=== PATIENT | male | born 1975 | race Caucasian/White ===

== ENCOUNTER → 2017-07-06 15:11 | Outpatient (CLI) | payer BC, SELFPAY ==
--- NOTE | 2017-07-06 15:20 | RAD_ITS ---
STUDY: X-RAY CHEST REASON FOR EXAM: Male, 41 years old. Shortness of breath TECHNIQUE: Frontal and lateral views of the chest COMPARISON: None. FINDINGS: The lungs are clear. There are no pleural effusions. There is no pneumothorax. The heart is normal in size. The visualized osseous structures are within normal limits. RAD/Chest PA and Lateral IMPRESSION: No acute thoracic pathology. Electronically Signed: Dany Salgado, at 16:07 EDT Tel , Service support ,
== END ==
PROVIDERS: Family Provider Internal Medicine; PCP Internal Medicine; Visit Provider Internal Medicine
DX: R06.02 Shortness of breath (principal)
CPT/HCPCS: 71046

== ENCOUNTER → 2018-12-24 | Outpatient (CLI) | payer SELFPAY ==
--- NOTE | 2018-12-24 14:57 | CT_ITS ---
STUDY: CARDIAC CALCIUM SCORING - CT CHEST REASON FOR EXAM: Male, 43 years old. Screening. RADIATION DOSAGE (If Supplied By Facility): CTDIvol = ( 12.19 ) mGy, DLP = ( 170.66 ) mGycm TECHNIQUE: Axial non-enhanced images were acquired through the heart for the sole purpose of measuring coronary artery calcium. Individualized dose optimization techniques were used for this CT. COMPARISON: None. FINDINGS: This portion of the report is being generated solely for the evaluation of noncoronary artery structures which have been assessed on plain another report. The visualized lungs are well expanded and free of mass or infiltrate. The heart is normal in size. Normal pericardium. Normal visualized mediastinum and evrnon. Normal visualized pulmonary arteries and thoracic aorta. Minimal degenerative changes of the thoracic spine. Normal visualized upper abdomen. CT/Limited Chest CT w/CCTA IMPRESSION: No visualized anatomic abnormality. Electronically Signed: Simon Richards DO at 20:50 EDT Tel [phone], Service support ,
[2018-12-24 15:18] VITALS: BP 133/80; PULSE 63; RESP 14; O2SAT 95; BMI 34.7
--- NOTE | 2018-12-27 14:18 | CA.SCORE ---
Calcium Scoring Date of Study:: 12/24/18 Coronary Calcium Scoring: High-resolution Computed Tomographic imaging of the chest was performed on [ ], with particular attention paid to the coronary arteries. Images from the examination were analyzed for the presence and extent of coronary artery calcification , using coronary calcium quantification software. The patient tolerated the procedure well and there were no complications. The results of the coronary calcification analysis are provided below. - Findings Left Main (LM): 3.58 Left Anterior Descending (LAD): 0 Left Circumflex (LCX): 0 Right Coronary Artery (RCA): 0 Total Agatston Score: 3.58 Percentile Rankin Calcium Scoring Interpretation: 1-10 Minimal Plaque burden. Significant coronary artery disease very unlikely.
== END | disposition home or self-care (01) ==
PROVIDERS: Family Provider Internal Medicine; PCP Internal Medicine; Referring Provider Internal Medicine; Visit Provider Internal Medicine
DX: Z82.49 Family history of ischemic heart disease and other diseases of the circulatory system (principal)
CPT/HCPCS: 75571; 76380